=== PATIENT | male | born 1995 | race American Indian/Alaskan Native ===

== ENCOUNTER 2016-11-13 16:32 | Emergency (ER) | payer OTHER ==
[2016-11-13 16:36] VITALS: BP 134/77
[2016-11-13] MEDS ORDERED: MOTRIN PO ONE (17:44)
--- NOTE | 2016-11-13 17:51 | XRay Report ---
FINAL REPORT PROCEDURE: XR ANKLE 3 LT TECHNIQUE: Three views of the left ankle are obtained. HISTORY: fall/swelling/pain COMPARISON: No prior studies are available for comparison. FINDINGS: Tiny calcific densities seen adjacent to the dorsum of the navicular bone. This could be ligament calcification or possibly small avulsed fracture fragment. No widening of the ankle mortise is seen. No calcaneal plantar spur is seen. IMPRESSION: Tiny calcific density adjacent to the dorsum of the navicular bone could possibly be a small avulsion fracture fragment.
--- NOTE | 2016-11-13 18:09 | Emergency Department Report ---
ED Lower Extremity HPI - General Chief Complaint: Extremity Injury, Lower Stated Complaint: ANKLE PAIN Time Seen by Provider: 11/13/16 17:31 Source: patient, EMS Mode of arrival: Stretcher Limitations: No Limitations - History of Present Illness Initial Comments: 21-year-old male with no past medical history presenting today because of left ankle pain. 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 Complaining about some pain just anterior to the lateral malleolus without any swelling. No numbness or weakness. He was able to ambulate several steps from there to his car with mild pain. - Related Data Previous Rx's Medication Instructions Recorded Last Taken Type Ibuprofen [Motrin] 600 mg PO Q8H PRN #16 tablet 11/13/16 Unknown Rx Allergies Allergy/AdvReac Type Severity Reaction Status Date / Time No Known Allergies Allergy Unverified 11/13/16 16:33 ED Review of Systems ROS: Stated complaint: ANKLE PAIN Other details as noted in HPI Comment: All other systems reviewed and negative Constitutional: denies: chills, fever Respiratory: denies: cough Cardiovascular: denies: chest pain Gastrointestinal: denies: abdominal pain, vomiting Genitourinary: denies: urgency Skin: denies: rash Psychiatric: denies: anxiety ED Past Medical Hx - Past Medical History Previous Medical History?: No - Surgical History Past Surgical History?: Yes Hx Appendectomy: Yes - Social History Smoking Status: Never Smoker Substance Use Type: Alcohol - Medications Home Medications: Home Medications Medication Instructions Recorded Confirmed Last Taken Type Ibuprofen [Motrin] 600 mg PO Q8H PRN #16 tablet 11/13/16 Unknown Rx ED Physical Exam - General Limitations: No Limitations General appearance: alert, in no apparent distress - Head Head exam: Present: atraumatic - Eye Eye exam: Present: normal appearance - Respiratory Respiratory exam: Present: normal lung sounds bilaterally. Absent: respiratory distress - Cardiovascular Cardiovascular Exam: Present: regular rate, normal rhythm - GI/Abdominal GI/Abdominal exam: Present: soft. Absent: distended, tenderness - Extremities Exam Extremities exam: Present: other (mild tenderness anterior to the left lateral malleolus, sensation intact distally, capillary refill less than 2 seconds, is able to move all toes, no swelling or erythema or warmth) - Neurological Exam Neurological exam: Present: alert, oriented X3 - Psychiatric Psychiatric exam: Present: normal affect - Skin Skin exam: Present: intact ED Course Vital Signs 11/13/16 11/13/16 16:33 16:38 Temperature 98.9 F Pulse Rate 77 Respiratory 18 18 Rate Blood Pressure 134/77 O2 Sat by Pulse 98 98 Oximetry ED Lower Extremity MDM - Medical Decision Making xray, motrin xray shows ?avulsion fracture, placed in posterior and sugartong splints and given crutches with orthopedics fu Critical care attestation.: If time is entered above; I have spent that time in minutes in the direct care of this critically ill patient, excluding procedure time. ED Disposition Clinical Impression: Ankle pain, left Qualifiers: Chronicity: acute Qualified Code(s): M25.572 - Pain in left ankle and joints of left foot Disposition: DISCHARGED TO HOME OR SELFCARE Is pt being admited?: No Does the pt Need Aspirin: No Condition: Stable Additional Instructions: Please follow up with your primary care physician in the next 3-5 days and orthopedist in the next 1-2 weeks. Return to the ER if your symptoms worsen or you develop new symptoms. Prescriptions: Ibuprofen [Motrin] 600 mg PO Q8H PRN #16 tablet PRN Reason: Pain Referrals: PRIMARY CARE, [Primary Care Provider] - 3-5 Days [facility] [Provider Group] - 3-5 Days
== END 2016-11-13 18:31 | disposition home or self-care (01) ==
LOC: ED 16:32
DX: M25.572 Pain in left ankle and joints of left foot (principal); W22.8XXA Striking against or struck by other objects, initial encounter; Y93.02 Activity, running; Y99.9 Unspecified external cause status; Y92.89 Other specified places as the place of occurrence of the external cause